=== PATIENT | female | born 1965 | race Caucasian/White ===

== ENCOUNTER → 2018-01-14 | Emergency (ER) | payer OTHER ==
[~2018-01-14] VITALS: Ht 165.1 cm; Wt 68.9 kg
[~2018-01-14] MED LIST: COZAAR25 MG; KETO10TA2 PO; NEURONTIN600 MG; PEPCID AC20 MG PO; SYNTHROID50 MCG
== END | disposition home or self-care (01) ==
LOC: ER 21:36
DX: R10.12 Left upper quadrant pain (principal); K29.60 Other gastritis without bleeding

== ENCOUNTER 2022-12-25 09:23 | Outpatient (CLI) | payer OTHER | END 2022-12-25 09:32 | disposition home or self-care (01) | LOC: SONOGRAMA 09:23 | PROVIDERS: ATTEND Pathology Anatomic Pathology & Clinical Pathology | DX: E04.1 Nontoxic single thyroid nodule (principal) ==